=== PATIENT | male | born 1990 | race Caucasian/White ===

== ENCOUNTER 2016-05-29 13:23 | Emergency (ER) | payer SELFPAY ==
[~2016-05-29] VITALS: Ht 182.9 cm; Wt 67.0 kg
[~2016-05-29 13:23] MED LIST: AUGM500T7 PO; SULF1TAB47 PO; Z.0.NO CURRENT MEDS
[2016-05-29 13:24] VITALS: PULSE 107; RESP 16; TEMP 98.5; O2SAT 96
--- NOTE | 2016-05-29 13:51 | PD ---
HPI Chief Complaint: Skin Problem Time Seen by Provider: 13:43 Travel History International Travel<30 days: No Contact w/Intl Traveler<30days: No Traveled to known affect area: No History of Present Illness HPI The patient is a 25-year-old male who presents to the emergency department for right elbow pain and swelling. The patient states he injured his right elbow while working on a car last week. The patient states the transmission fell and he scraped his right elbow against the wall while trying to hold a transmission. The patient states he had a small cut over the affected area and over the next several days noted some increased swelling and redness. He now notes drainage from the area which she described as clear to red in color. He also notes redness of the extensor surface of the elbow with consistent pain. He does note his right upper extremity feels warm, but denies any fever, chills, or sweats. The patient is right-hand dominant. The patient denies any difficulty with supination, pronation, flexion, or extension of the right upper extremity. Patient cannot recall his last tetanus shot. The patient denies any history of immunocompromising diseases including autoimmune disorders, HIV, diabetes, or IVDA. PFSH Past Medical History Diminished Hearing: No Social History Alcohol Use: Yes (occ) Tobacco Use: Yes (1 PPD) Substance Use: No Allergies-Medications (Allergen,Severity, Reaction): Coded Allergies: No Known Allergies (Unverified , 05/29/16) Reported Meds & Prescriptions Reported Meds & Active Scripts Active Bactrim Ds (Trimethoprim/Sulfamethoxazole) Tab 1 Tab PO BID Augmentin (Amoxicillin/Clavulanate Potassium) 500 Mg Tab 500 Mg PO Q12H Reported No Current Meds (Miscellaneous Medication) Misc Review of Systems General / Constitutional: No: Fever Musculoskeletal: Positive: Edema, Pain, No: Limited ROM Skin: Positive Other (as noted in the history of present illness) Neurologic: No: Paresthesia, Sensory Disturbance Endocrine: No: Other (denies any history diabetes) Hematologic/Lymphatic: No: Other (denies any history of HIV) Physical Exam Narrative GENERAL: Awake, alert, pleasant 25-year-old male who appears his stated age and is in no acute respiratory distress. SKIN: Warm and dry. HEAD: Atraumatic. Normocephalic. EYES: Pupils equal and round. No scleral icterus. No injection or drainage. ENT: No nasal bleeding or discharge. Mucous membranes pink and moist. NECK: Trachea midline. No JVD. MUSCULOSKELETAL: The right elbow reveals erythema and edema over the extensor surface of the right elbow. The bursa the right elbow is swollen, edematous, but no palpable abscess under the bursa. Patient is able fully flex and extend the right elbow, there is no circumferential edema. He is able fully supinate and pronate. Positive right radial pulse. NEUROLOGICAL: Awake and alert. No obvious cranial nerve deficits. Motor grossly within normal limits. Normal speech. PSYCHIATRIC: Appropriate mood and affect; insight and judgment normal. Data Data Last Documented VS Vital Signs Date Time Temp Pulse Resp B/P Pulse Ox O2 Delivery O2 Flow Rate FiO2 05/29/16 13:24 98.5 107 16 96 Orders Clindamycin (Cleocin) (05/29/16 14:00) [facility] Medical Decision Making Medical Screen Exam Complete: Yes Emergency Medical Condition: Yes Medical Record Reviewed: Yes Differential Diagnosis Differential diagnosis includes septic bursitis, laceration, infected wound, abscess, septic joint. Narrative Course The patient is able fully flex and extend the elbow as well as supinate and pronate, there is no circumferential erythema, I doubt septic joint. The patient does have erythema and swelling over the bursa consistent with septic bursitis. The patient was administered clindamycin 300 mg orally and will be placed on clindamycin 4 times a day for 10 days. He is advised to clean the area twice a day with soap and water, keep bandaged with the protective padded dressing over the affected area during the day. He is also advised to follow- up with a primary physician and return if symptoms worsen or progress. The patient's tetanus shot was updated. Diagnosis Primary Impression: Septic bursitis of elbow Qualified Code: M71.121 - Septic bursitis of elbow, right Patient Instructions: General Instructions Additional Instructions: Medications as directed. Follow-up with your primary physician. Return if symptoms worsen or progress. Med/Other Pt SpecificInfo: Prescription(s) given Scripts Clindamycin (Cleocin)150 Mg [id number] Mg PO Q6H 10 Days Ref 0 Prov:Jose E Sevilla MD 05/29/16 Disposition: DISCHARGE HOME Condition: Stable Jose E Sevilla MD May 29, 2016 13:51
[2016-05-29] MEDS ORDERED: CLIN150 PO (13:56)
[2016-05-29] MEDS ORDERED: TETANUS/DIPHTHERIA TOXOID ADULT 0.5 ML VIAL IM ONE (14:00)
[2016-05-29] MEDS ORDERED: CLINDAMYCIN 150 MG CAP PO ONE (14:00)
== END 2016-05-29 14:14 | disposition home or self-care (01) ==
LOC: PHED 13:23
DX: M71.121 Other infective bursitis, right elbow (principal); F17.210 Nicotine dependence, cigarettes, uncomplicated; X58.XXXA Exposure to other specified factors, initial encounter; Y99.8 Other external cause status
CPT/HCPCS: 99283